=== PATIENT | male | born 1960 | race American Indian/Alaskan Native ===

== ENCOUNTER 2021-05-25 00:07 | Emergency (ER) | payer OTHER ==
--- NOTE | 2021-05-25 00:21 | Emergency Department Report ---
ED General Adult HPI - General Stated complaint: UNABLE TO URINATE Time Seen by Provider: 05/25/21 00:13 Source: patient, EMS - History of Present Illness Initial comments: Patient is 60 years old male with history of hypertension and benign prostatic hypertrophy. Patient brought to the emergency room from a local hotel for evaluation of acute urine retention. Patient stated that he usually do a self cath however he will get his supplies as he is traveling from [facility]. Patient denied any nausea or vomiting. No fever or chills. No other complaint. - Related Data Allergies Allergy/AdvReac Type Severity Reaction Status Date / Time lisinopril Allergy Unknown Verified 05/25/21 00:42 ED Review of Systems ROS: Stated complaint: UNABLE TO URINATE Other details as noted in HPI Comment: All other systems reviewed and negative Constitutional: denies: chills, fever Respiratory: denies: cough, shortness of breath, SOB with exertion Cardiovascular: denies: chest pain, palpitations Gastrointestinal: abdominal pain. denies: hematemesis, hematochezia Musculoskeletal: denies: back pain ED Physical Exam - General General appearance: alert, in no apparent distress - Head Head exam: Present: atraumatic, normocephalic, normal inspection - Eye Eye exam: Present: normal appearance, PERRL - ENT ENT exam: Present: normal exam, normal orophraynx, mucous membranes moist - Neck Neck exam: Present: normal inspection, full ROM. Absent: tenderness, meningismus - Respiratory Respiratory exam: Present: normal lung sounds bilaterally - Cardiovascular Cardiovascular Exam: Present: regular rate, normal rhythm, normal heart sounds - GI/Abdominal GI/Abdominal exam: Present: soft, distended, normal bowel sounds. Absent: tenderness, guarding, rebound, rigid, organomegaly, mass, bruit, pulsatile mass - Extremities Exam Extremities exam: Present: normal inspection, full ROM, normal capillary refill. Absent: tenderness - Back Exam Back exam: Present: normal inspection, full ROM. Absent: CVA tenderness (R), CVA tenderness (L) - Neurological Exam Neurological exam: Present: alert, oriented X3, CN II-XII intact - Psychiatric Psychiatric exam: Present: normal mood - Skin Skin exam: Present: warm, intact, normal color ED Course Vital Signs 05/25/21 00:45 Temperature 98.8 F Pulse Rate 78 Respiratory 18 Rate Blood Pressure 135/93 [Right] O2 Sat by Pulse 99 Oximetry ED Medical Decision Making - Medical Decision Making Patient is 60 years old male with history of hypertension and benign prostatic hypertrophy. Patient brought to the emergency room from a local hotel for evaluation of acute urine retention. Patient stated that he usually do a self cath however he will get his supplies as he is traveling from [facility]. Patient denied any nausea or vomiting. No fever or chills. No other complaint. Patient remained stable in the ER with a stable vital sign. Cárdenas catheter placed and immediately return 1300 ML. Patient stated that he is feeling much better. Patient advised to follow-up with his urologist in the next 2 to 3 days and to return to the ER if he develop any new symptoms. Critical care attestation.: If time is entered above; I have spent that time in minutes in the direct care of this critically ill patient, excluding procedure time. ED Disposition Clinical Impression: Acute retention of urine Disposition: 01 HOME / SELF CARE / HOMELESS Is pt being admited?: No Condition: Stable Instructions: Clean Intermittent Catheterization, Male, Acute Urinary Retention, Male, [id number], Indwelling Urinary Catheter Care, Adult Referrals: PRIMARY CARE, [Referring] - 3-5 Days
[2021-05-25 00:47] VITALS: BP 135/93
== END 2021-05-25 01:34 | disposition home or self-care (01) ==
LOC: ED 00:07
DX: R33.9 Retention of urine, unspecified (principal); Z88.8 Allergy status to other drugs, medicaments and biological substances
CPT/HCPCS: 51702; 99283